=== PATIENT | female | born 1975 | race Caucasian/White ===

== ENCOUNTER → 2019-08-23 | Outpatient (CLI) | payer BC ==
--- NOTE | 2019-08-23 10:40 | Diagnostic Imaging Report ---
Indication: Routine screening. No prior mammograms available for comparison. This is a baseline study. 2-D and 3-D bilateral screening mammography was performed with CAD. Both breasts are heterogeneously dense, limiting the sensitivity of mammography. There is a circumscribed nodule in the upper-outer right breast posterior depth, suggestive of intramammary lymph node. No spiculated mass or malignant-appearing microcalcifications are seen. Axillae are unremarkable. Impression: BI-RADS category 2. No mammographic features suspicious for malignancy are identified. Dictated by: Dictated on workstation # [id number]
== END ==
LOC: RAD 08:24
PROVIDERS: ATTEND Nurse Practitioner Family
DX: Z12.31 Encounter for screening mammogram for malignant neoplasm of breast (principal)
CPT/HCPCS: 77067

== ENCOUNTER → 2022-02-05 | Outpatient (CLI) | payer BC, OTHER ==
--- NOTE | 2022-02-05 17:18 | Diagnostic Imaging Report ---
INDICATION: Fall and pelvic pain. TIME OF EXAM: 1:53 PM Multiple views of the sacrum and coccyx were obtained. Sacrococcygeal alignment is normal. No fracture or subluxation is identified. Sacral arcuate lines are intact. IMPRESSION: No acute abnormality is detected. Dictated by: Dictated on workstation # [id number]
--- NOTE | 2022-02-05 17:19 | Diagnostic Imaging Report ---
INDICATION: Fall and low back pain. TIME OF EXAM: 1:52 PM Three views of the lumbar spine were obtained. Curvature of the lumbar spine is normal. There is minimal anterolisthesis of L4 on L5. There is also very slight disc space narrowing at L4-L5. There appears to be degenerative facet changes at L4-L5 and L5-S1 levels. The vertebral body heights are maintained. No fractures are seen. IMPRESSION: Degenerative changes as well as mild anterolisthesis at L4-L5 level, as described. Dictated by: Dictated on workstation # [id number]
== END ==
LOC: RAD 13:31
PROVIDERS: ATTEND Nurse Practitioner Family
DX: M54.50 Low back pain, unspecified (principal); M53.3 Sacrococcygeal disorders, not elsewhere classified; R10.2 Pelvic and perineal pain; W19.XXXA Unspecified fall, initial encounter
CPT/HCPCS: 72100; 72220

== ENCOUNTER → 2022-04-08 | Outpatient (CLI) | payer OTHER ==
--- NOTE | 2022-04-09 09:32 | Diagnostic Imaging Report ---
3-D bilateral screening mammogram with CAD. This study was compared to the prior exam of 08/23/2019. At this time there are no current complaints. The current study was also evaluated with a Computer Aided Detection (CAD) system. FINDINGS: The fibroglandular tissue in both breasts is heterogeneously dense. This does limit the sensitivity of this exam. Overall, there does not appear to have been any significant change when compared to the prior study. No primary or secondary sign of malignancy is noted. IMPRESSION: 1. There is no radiographic evidence for malignancy. 2. The patient should have her annual bilateral screening mammogram on schedule in March 2023. ACR BI-RADS Category 1: Negative. Result letter will be mailed to the patient. Note: At least 10% of breast cancer is not imaged by mammography. ACR category 1 Dictated by: Dictated on workstation # [id number]
== END ==
LOC: RAD 10:01
PROVIDERS: ATTEND Nurse Practitioner Family
DX: Z12.31 Encounter for screening mammogram for malignant neoplasm of breast (principal)
CPT/HCPCS: 77063; 77067

== ENCOUNTER 2023-01-08 09:24 | Outpatient (CLI) | payer OTHER ==
[~2023-01-08] VITALS: Ht 157.5 cm; Wt 63.0 kg
== END 2023-01-14 15:04 | disposition home or self-care (01) ==
LOC: PREOP 09:24
PROVIDERS: ATTEND Surgery
DX: Z01.818 Encounter for other preprocedural examination (principal)

== ENCOUNTER 2023-01-20 10:00 | Day surgery (SDC) | payer OTHER ==
[~2023-01-20] VITALS: Ht 157 cm; Wt 63.0 kg
[2023-01-20] MEDS ORDERED: LACTATED RINGERS 1,000 ML IV STA (10:07)
--- NOTE | 2023-01-20 10:14 | Progress Note-Pre Operative ---
Pre-Operative Progress Note Date of Available H&P: Jan 07, 2023 Date H&P Reviewed: Jan 20, 2023 Time H&P Reviewed: 10:12 History & Physical: H&P Reviewed, Patient Examed, No changes noted Pre-Operative Diagnosis: Screening colon YO DANGELO DO Jan 20, 2023 10:14
[2023-01-20 10:15] VITALS: BP 129/81
[2023-01-20] MEDS ORDERED: PROPOFOL INJECTION 50 ML IV ONE (10:54)
--- NOTE | 2023-01-20 11:36 | Progress Note-Post Operative ---
Post-Operative Progess Note Surgeon (s)/Forest And Conservation Worker (s) Surgeon YO DANGELO DO Forest And Conservation Worker: RADHAMES Pittman Pre-Operative Diagnosis Screening colon Post-Operative Diagnosis int hemorrhoids Procedure & Operative Findings Date of Procedure 01/20/23 Procedure Performed/Findings Colonoscopy PROCEDURE NOTE: After informed consent was obtained, the patient was brought to the endoscopy suite, placed in bed in left lateral decubitus position. She was administered IV sedation by the CEMENT RUBBER who then monitored her vitals the entire time, heart rate, blood pressure and pulse ox and the scope was inserted, pushed all the way to about 150 cm and pushed into the cecum, took a picture of appendiceal orifice and noted the ileocecal valve. Then slowly withdrew the scope insufflating to look circumferentially at the wilde starting in the cecum, up the ascending colon to the hepatic flexure, then down the transverse colon, splenic flexure, into the descending colon down in the sigmoid and then into the rectal vault and retroflexed the scope. Took a picture of the internal hemorrhoids. The patient tolerated the procedure. She was recovered in endoscopy suite. Recommended for repeat colonoscopy in 10 years. Anesthesia Type IV sedation by CEMENT RUBBER Estimated Blood Loss Estimated blood loss (mL): none Specimens/Packing Specimens Removed none YO DANGELO DO Jan 20, 2023 11:36
--- NOTE | 2023-01-20 11:37 | Endoscopy Discharge Instruct ---
Endo Procedure/Findings Findings 1.: Internal Hemorrhoids Discharge Instructions - Activity: You might feel a little sleepy until tomorrow. This is due to the me dicine you received to relax you. Until tomorrow, you should: NOT drive a car, operate machinery or power tools. NOT drink any alcoholic beverages. NOT make any important decisions or sign importortant papers. Do not return to work until tomorrow, unless otherwise instructed. Resume previous activities tomorrow. Diet: Start by taking liquids. If you tolerate liquids, advance to solid food. 1.: Colonscopy in 10 years Notify Physician - If you experience excessive bleeding, unusual abdominal pain, fever, or chest pain, contact your doctor immediately. YO DANGELO DO Jan 20, 2023 11:37
[2023-01-20 11:42] VITALS: BP 95/52
[2023-01-20 11:47] VITALS: BP 109/59
[2023-01-20 11:50] VITALS: BP 109/59
[2023-01-20 12:05] VITALS: BP 109/59
[2023-01-20 12:22] VITALS: BP 109/59
== END 2023-01-20 12:22 | disposition home or self-care (01) ==
LOC: ENDO 10:00
PROVIDERS: ATTEND Surgery
DX: Z12.11 Encounter for screening for malignant neoplasm of colon (principal); K64.8 Other hemorrhoids; Z87.891 Personal history of nicotine dependence; Z86.03 Personal history of neoplasm of uncertain behavior
CPT/HCPCS: 84703

== ENCOUNTER → 2023-04-29 | Outpatient (CLI) | payer OTHER ==
--- NOTE | 2023-04-30 10:23 | Diagnostic Imaging Report ---
INDICATION: Routine screening. COMPARISON: 04/08/2022 and 08/23/2019. TECHNIQUE: 2D and 3D bilateral screening mammography was performed with CAD. FINDINGS: Both breasts are heterogeneously dense, limiting the sensitivity of mammography. A benign nodule in the upper outer aspect of the right breast appears stable. No new mass or malignant-appearing microcalcifications are seen. The axillae are unremarkable. IMPRESSION: No mammographic features suspicious for malignancy are identified. ACR BI-RADS Category 2: Benign findings. Result letter will be mailed to the patient. Note: At least 10% of breast cancer is not imaged by mammography. Dictated by: Dictated on workstation # [id number]
== END ==
LOC: RAD 12:59
PROVIDERS: ATTEND Family Medicine
DX: Z12.31 Encounter for screening mammogram for malignant neoplasm of breast (principal)
CPT/HCPCS: 77063; 77067

== ENCOUNTER → 2023-09-11 | Outpatient (CLI) | payer OTHER | LOC: ORTHO 11:05 | PROVIDERS: ATTEND Orthopaedic Surgery | DX: M25.561 Pain in right knee (principal); M25.562 Pain in left knee | CPT/HCPCS: 99213 ==

== ENCOUNTER 2023-09-25 08:34 | Outpatient (RCR) | payer OTHER | END 2023-09-30 | disposition home or self-care (01) | PROVIDERS: ATTEND Family Medicine | DX: Z00.01 Encounter for general adult medical examination with abnormal findings (principal); M25.511 Pain in right shoulder; M54.12 Radiculopathy, cervical region ==

== ENCOUNTER 2023-10-02 08:32 | Outpatient (RCR) | payer OTHER | END 2023-10-14 09:16 | disposition home or self-care (01) | PROVIDERS: ATTEND Family Medicine | DX: Z00.01 Encounter for general adult medical examination with abnormal findings (principal); M25.511 Pain in right shoulder; M54.12 Radiculopathy, cervical region ==